=== PATIENT | male | born 1950 | race Hispanic/Latino ===

== ENCOUNTER 2022-08-24 16:38 | Emergency (ER) | payer OTHER, SELFPAY ==
[2022-08-24] VITALS (11 sets, daily range): BP systolic 153–191; BP diastolic 68–89; PULSE 64–70; RESP 16–18; TEMP 36.5; O2SAT 95–98
--- NOTE | 2022-08-24 18:29 | ED.MALEGU ---
HPI - Male Genitourinary General Chief complaint: Urogenital-Male Stated complaint: difficulty urinating Time Seen by Provider: 08/24/22 18:28 Source: patient and family Mode of arrival: ambulatory Limitations: no limitations History of Present Illness HPI Narrative: 72 years old white male came to the emergency room because inability to urinate. Last urination was 8 AM. Patient had similar symptoms yesterday, went to [facility], received some medication then got discharged. He denies any fever, chills, nausea, vomiting. Review of Systems Review of Systems: All systems reviewed & are unremarkable except as noted in HPI and below Exam Narrative: General appearance: Well-developed, well-nourished Skin: Normal color Head: Normocephalic, nontraumatic Eyes: Clear conjunctiva ENT: Oropharynx normal, ears normal, nose normal Neck: Supple, nontender Chest and respiratory: Airway patent, no respiratory distress, no accessory muscle use Heart: Regular rate/rhythm Abdomen: Diffuse tenderness suprapubic area, bulging suprapubic area Vascular: Normal peripheral pulses, normal capillary refill. 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 Status post Kathleen catheter placement. Date: 08/24/22 Time: 18:35 Vital Signs Vital signs: Vital Signs Temperature 36.5 C 08/24/22 16:59 Pulse Rate 65 08/24/22 16:59 Respiratory Rate 18 08/24/22 16:59 Blood Pressure 191/69 H 08/24/22 16:59 Pulse Oximetry 98 08/24/22 16:59 Oxygen Delivery Room Air 08/24/22 16:59 Temperature 36.5 C 08/24/22 16:59 Pulse Rate 68 08/24/22 21:00 Respiratory Rate 16 08/24/22 21:00 Blood Pressure 164/75 H 08/24/22 21:00 Pulse Oximetry 97 08/24/22 21:00 Oxygen Delivery Room Air 08/24/22 16:59 MDM - Male Genitourinary MDM Narrative Medical decision making narrative: Patient came with urinary retention, last urination was 10 hours prior to arrival to the emergency room. Patient was uncomfortable, suprapubic tenderness, Kathleen catheter placed, and 1600 cc urine out. With complete improvement of pain. Urinalysis showed no acute abnormalities. Benign prostatic hypertrophy high likely the underlying cause of patient urinary retention. Patient to follow-up with the urologist in few days. Differential Diagnosis Differential diagnosis: Likely urinary tract infection and acute retention of urine Lab Data Labs: Lab Results 08/24/22 Range/Units 20:59 Urine Color Yellow (Yellow) Urine Appearance Clear (Clear) Urine pH 6.0 (5.0-9.0) Ur Specific Anna 1.008 (1.001-1.035) Urine Protein Negative (Negative) mg/dL Urine Glucose (UA) Negative (Negative) mg/dL Urine Ketones Negative (Negative) mg/dL Ur Blood (Man) Negative (Negative) Urine Nitrate Negative (Negative) Urine Bilirubin Negative (Negative) Urine Urobilinogen 0.2 (<2.0) mg/dL Leukocyte Esterase Rfl Negative (Negative) KATHYA/UL Discharge Plan Discharge Clinical Impression: Acute retention of urine Patient Disposition: Home, Self-Care Condition: Stable Instructions: Antibiotic Form, Urinary Retention in Men (ED), Kathleen Catheter Placement and Care (ED), How to Change a Catheter Drainage Bag (DC) Additional Instructions: Return if symptoms are worsening , call urologist for appointment, take Tylenol as as needed for aches and pain, continue home medications. Remove Kathleen catheter in 3 to 5 days Follow-up/Referrals: Janes Peñaloza
[2022-08-24 21:14] LABS: Appearance Urine Clear (Clear); Bilirubin Urine Negative (Negative); Blood Urine Negative (Negative); Color Urine Yellow (Yellow); Glucose Urine UA Negative (Negative); Ketones Urine Negative (Negative); Leukocyte Esterase Ur Negative LEU/UL (Negative); Nitrate Urine Negative (Negative); Protein Urine Negative (Negative); Specific Grav Ur 1.008 (1.001-1.035); Urobilinogen Urine 0.2 mg/dL (<2.0)
[2022-08-24 21:25] LABS: Add Urine Microscopic? NO
== END 2022-08-24 22:20 | disposition home or self-care (01) ==
PROVIDERS: Physician Assistant; Emergency Provider Emergency Medicine; PCP Internal Medicine Gastroenterology
DX: R33.9 Retention of urine, unspecified (principal)
CPT/HCPCS: 51702; 81003; 99283

== ENCOUNTER 2022-09-30 11:38 | Emergency (ER) | payer OTHER, SELFPAY ==
[2022-09-30 11:44] VITALS: BP 180/67; PULSE 73; RESP 18; TEMP 36.4; O2SAT 99
--- NOTE | 2022-09-30 14:19 | ED.RECABL ---
HPI - Recheck/Abnormal Lab/Rx General Chief Complaint: Recheck/Abnormal Lab/Rx Stated Complaint: asking for catheter change Time Seen by Provider: 09/30/22 14:13 History of Present Illness HPI narrative: Patient is a 72-year-old male presenting for catheter change. Patient had a Alejandro catheter placed here last month for urinary retention. States that he has made several appointments with urology but they keep canceling on him. States that his next appointment is scheduled for next week. States that he is concerned that the catheter has not been changed for a long time. He denies any complaints or other concerns. Review of Systems Review of Systems: All systems reviewed & are unremarkable except as noted in HPI and below Exam Narrative: GENERAL: Well-appearing, well-nourished, and in no acute distress. Pleasant and cooperative HEAD: Normocephalic, atraumatic. EYES: PERRLA and EOMI. ENT: Nares clear, no rhinorrhea or epistaxis. Mucous membranes moist. NECK: Supple. CHEST: No respiratory distress. HEART: Regular rate and rhythm. ABDOMEN: Soft, nontender, nondistended : alejandro catheter in place with leg bag EXTREMITIES: Normal range of motion. No edema. SKIN: Warm, dry, no rash. NEURO: No focal deficits. Alert and oriented x3. PSYCH: Normal mood and affect. Course Vital Signs Vital signs: Vital Signs Temperature 97.6 F 09/30/22 11:44 Pulse Rate 73 09/30/22 11:44 Respiratory Rate 18 09/30/22 11:44 Blood Pressure 180/67 H 09/30/22 11:44 Pulse Oximetry 99 09/30/22 11:44 Temperature 97.6 F 09/30/22 11:44 Pulse Rate 54 L 09/30/22 15:14 Respiratory Rate 18 09/30/22 15:14 Blood Pressure 180/68 H 09/30/22 15:14 Pulse Oximetry 100 09/30/22 15:14 MDM - Recheck/Abnormal Lab/Rx MDM Narrative Medical decision making narrative: Patient is a 72-year-old male presenting for Alejandro catheter exchange. Patient is well-appearing and in no acute distress. He denies any complaints or other concerns. States that he just needs the catheter changed. States that he has an appointment with urology next week. Catheter exchanged at bedside without complication. Advised that he follow-up closely with his PCP as well. Appropriate return precautions given. Patient voiced understanding and is agreeable with plan. Discharged in stable condition. Differential Diagnosis Differential diagnosis: Likely other (encounter for alejandro catheter exchange) Medical Records Attestation: I reviewed the patient's medical records. Critical Care Time Critical Care Time Critical Care Time: No Discharge Plan Discharge Clinical Impression: Encounter for Alejandro catheter replacement Patient Disposition: Home, Self-Care Condition: Stable Instructions: Antibiotic Form, Alejandro Catheter Placement and Care (ED) Additional Instructions: Your Alejandro catheter has been replaced. Please make sure to go to your urology appointment next week. We recommend following up with PCP within 1-3 days. If your symptoms worsen, you develop chest pain, shortness of breath, numbness or weakness, vomiting, fevers >100.4F, or other concerning symptoms arise, please return to the ER. Follow-up/Referrals: Stuart,Baron Ayala MD [Primary Care Provider] -
[2022-09-30 15:14] VITALS: BP 180/68; PULSE 54; RESP 18; O2SAT 100
== END 2022-09-30 15:15 | disposition home or self-care (01) ==
LOC: ANHED 14:48
PROVIDERS: Emergency Provider Emergency Medicine; PCP Internal Medicine Gastroenterology
DX: R33.9 Retention of urine, unspecified (principal); Z46.6 Encounter for fitting and adjustment of urinary device
CPT/HCPCS: 51702; 99283

== ENCOUNTER 2022-10-26 12:36 | Emergency (ER) | payer OTHER, SELFPAY ==
--- NOTE | ~2022-10-26 | US_ITS ---
EXAMINATION: US scrotum doppler DATE: 10/26/2022 13:58 INDICATION: Right testicular pain and swelling TECHNIQUE: Testicular sonogram utilizing grayscale and Doppler COMPARISON: None. FINDINGS: The right testis measures 3.9 x 3 x 3.6 cm. The left testis measures 4.3 x 2.5 x 2.1 cm. Th ere is increased vascularity of the right epididymis and testis when compared to the left. The right epididymis is normal in size. The left epididymis is normal with normal vascular flow. There is a sma ll, complex right hydrocele. IMPRESSION: 1. Findings consistent with right epididymoorchitis with complex right hydrocele. Urologic evaluation is recommended. Reviewed, dictated and finalized at location A. IMPRESSION: 1. Findings consistent with right epididymoorchitis with complex right hydrocel e. Urologic evaluation is recommended.
[2022-10-26 12:37] VITALS: BP 147/66; PULSE 70; RESP 18; TEMP 36.6; O2SAT 97
--- NOTE | 2022-10-26 14:48 | ED.MALEGU ---
HPI - Male Genitourinary General Chief complaint: Urogenital-Male Stated complaint: right testicle problem Time Seen by Provider: 10/26/22 13:27 History of Present Illness HPI Narrative: This is a 72-year-old male, with past history of urinary retention with a follow-up an appointment in 3 days. Who presents to the emergency department with 2 days worth of right testicle swelling and pain. The patient denies recent trauma, fevers or chills. He describes the pain as sharp, rated 7/10, aggravated by direct pressure but otherwise minimal. He notes irritation at the penis and the location of his Kathleen catheter but denies other bleeding or purulent drainage Related Data Allergies Allergy/AdvReac Type Severity Reaction Status Date / Time No Known Allergies Allergy Verified 10/26/22 12:40 Review of Systems Review of Systems: CONSTITUTIONAL: Denies fever, chills, or sweats. CARDIOVASCULAR: Denies chest pain, palpitations, or edema. RESPIRATORY: Denies cough or dyspnea. GASTROINTESTINAL: Denies abdominal pain, nausea, vomiting, or diarrhea. GENITOURINARY: Right scrotal pain, dysuria denies dysuria or hematuria. SKIN: Denies rash or itching. MUSCULOSKELETAL: Denies back pain, joint pain, or myalgia. NEUROLOGIC: Denies headache, numbness, dizziness, or weakness. PSYCHIATRIC: Denies anxiety or depression. [facility] Past Medical History Medical History (Updated 10/26/22 @ 14:55 by Petr Marin MD) Diabetes mellitus Urinary retention Surgical History Surgical History (Updated 10/26/22 @ 14:50 by Petr Marin MD) History of lumbosacral spine surgery Social History Social History (Updated 10/26/22 @ 14:50 by Petr Marin MD) Smoking status: Never smoker Alcohol intake: current Drinks per week: 2 Substance use: never Exam Narrative: GENERAL: Well-developed, well-nourished, and in no acute distress. HEAD: Normocephalic, atraumatic. EYES: PERRLA and EOMI. CHEST: Clear to auscultation. No respiratory distress. No wheezes rales or rhonchi HEART: Regular rate and rhythm. No murmur heard. Normal peripheral pulses. ABDOMEN: Well-healed midline surgical scar consistent with exploratory laparotomy soft, nontender, nondistended, normal active bowel sounds. : Right scrotal swelling, tender to palpation, there is no noted erythema or induration. The bilateral testicles are normal to palpation. Cremasteric reflex intact EXTREMITIES: Normal range of motion. No edema. SKIN: Warm, dry, no rash. NEURO: Alert and oriented x3. Moving all 4 limbs purposefully. PSYCH: Normal mood and affect. Course Course Emergency Course: 14:51 - Scrotal ultrasound consistent with epididymoorchitis. There are no other acute findings. Will discharge with antibiotics and recommendation for follow-up in 3 days as scheduled. Discussed return and emergency precautions including signs/symptoms of testicular torsion. The patient voiced understanding and is comfortable with the plan. All questions answered to his satisfaction. Vital Signs Vital signs: Vital Signs Temperature 97.9 F 10/26/22 12:37 Pulse Rate 70 10/26/22 12:37 Respiratory Rate 18 10/26/22 12:37 Blood Pressure 147/66 H 10/26/22 12:37 Pulse Oximetry 97 10/26/22 12:37 Oxygen Delivery Room Air 10/26/22 12:37 Temperature 97.9 F 10/26/22 12:37 Pulse Rate 70 10/26/22 12:37 Respiratory Rate 18 10/26/22 12:37 Blood Pressure 147/66 H 10/26/22 12:37 Pulse Oximetry 97 10/26/22 12:37 Oxygen Delivery Room Air 10/26/22 12:37 MDM - Male Genitourinary MDM Narrative Medical decision making narrative: Plan: Pain control, imaging, reassess here Differential Diagnosis Differential diagnosis: Likely epididymitis and other (Orchitis, hernia, hydrocele, torsion, other) Discharge Plan Discharge Clinical Impression: Epididymitis, Acute orchitis, Pain in scrotum Patient Disposition: Home, Self-Care Condition: Stabl
[2022-10-26 15:09] VITALS: BP 136/80; PULSE 78; RESP 16; TEMP 36.6; O2SAT 98
== END 2022-10-26 15:11 | disposition home or self-care (01) ==
PROVIDERS: Emergency Provider Preventive Medicine Aerospace Medicine; PCP Internal Medicine Gastroenterology
DX: N45.3 Epididymo-orchitis (principal); E11.9 Type 2 diabetes mellitus without complications
CPT/HCPCS: 76870; 93976; 99284

== ENCOUNTER 2022-11-02 09:02 | Emergency (ER) | payer OTHER, SELFPAY ==
[2022-11-02 09:03] VITALS: BP 225/112; PULSE 78; RESP 16; TEMP 36.4; O2SAT 100
--- NOTE | 2022-11-02 09:45 | ED.MALEGU ---
HPI - Male Genitourinary General Chief complaint: Urogenital-Male Stated complaint: cant urinate Time Seen by Provider: 11/02/22 09:35 Source: patient Mode of arrival: ambulatory Limitations: no limitations History of Present Illness HPI Narrative: 72 years old white male came to the emergency room complaining of unable to urinate since yesterday afternoon. Lower abdominal pain. No fever or chills or nausea or vomiting. History of Kathleen catheter placement 2 months ago, removed 1 week ago. His urologist at [facility] who have seen last week to remove the catheter. Patient currently on Levaquin 500 mg once a day. Related Data Allergies Allergy/AdvReac Type Severity Reaction Status Date / Time No Known Allergies Allergy Verified 10/26/22 12:40 Review of Systems Review of Systems: All systems reviewed & are unremarkable except as noted in HPI and below PMFSH Past Medical History Medical History Diabetes mellitus Urinary retention Surgical History Surgical History History of lumbosacral spine surgery Social History Social History Smoking status: Never smoker Alcohol intake: current Drinks per week: 2 Substance use: never Exam Narrative: General appearance: Well-developed, well-nourished Skin: Normal color Head: Normocephalic, nontraumatic Eyes: Clear conjunctiva ENT: Oropharynx normal, ears normal, nose normal Neck: Supple, nontender Chest and respiratory: Airway patent, no respiratory distress, no accessory muscle use Heart: Regular rate/rhythm Abdomen: Soft, diffuse tenderness supra pubic area, no organomegaly, quiet bowel sounds Vascular: Normal peripheral pulses, normal capillary refill. Musculoskeletal: Normal range of motion, nontender back Neurologic: Alert and oriented ?3, COLORS CUSTODIAN is normal as tested, no gross motor deficit Course Reevaluation(s) Reevaluation #1: Patient feeling much better after 1400 cc urine output after Kathleen catheter placement. Date: 11/02/22 Time: 10:54 Vital Signs Vital signs: Vital Signs Temperature 36.4 C 11/02/22 09:03 Pulse Rate 78 11/02/22 09:03 Respiratory Rate 16 11/02/22 09:03 Blood Pressure 225/112 H 11/02/22 09:03 Pulse Oximetry 100 11/02/22 09:03 Temperature 36.4 C 11/02/22 09:03 Pulse Rate 78 11/02/22 09:03 Respiratory Rate 16 11/02/22 09:03 Blood Pressure 225/112 H 11/02/22 09:03 Pulse Oximetry 100 11/02/22 09:03 MDM - Male Genitourinary MDM Narrative Medical decision making narrative: Patient came to the ED with urinary retention, last urination was yesterday afternoon, and history of similar symptoms was having Kathleen catheter for 2 months, removed 1 week ago at [facility]/urology. Patient currently on Levaquin 500 once a day. Kathleen catheter placed, 1400 cc urine output, remarkable improvement of patient's symptoms. Urine analysis showed no abnormalities. Patient to be discharged home with Kathleen catheter in, to follow-up with his urologist in 3 to 4 days Differential Diagnosis Differential diagnosis: Likely other (Urinary retention, urinary tract infection) Critical Care Time Critical Care Time Critical Care Time: Yes Total Critical Care Time: 30 Discharge Plan Discharge Clinical Impression: Acute retention of urine Patient Disposition: Home, Self-Care Condition: Improved Instructions: Urinary Retention in Men (ED), Kathleen Catheter Placement and Care (ED), How to Change a Catheter Drainage Bag (DC) Additional Instructions: Return if symptoms
[2022-11-02 10:18] LABS: Appearance Urine Clear (Clear); Bilirubin Urine Negative (Negative); Blood Urine Negative (Negative); Color Urine Yellow (Yellow); Glucose Urine UA Negative (Negative); Ketones Urine Negative (Negative); Leukocyte Esterase Ur Negative LEU/UL (Negative); Nitrate Urine Negative (Negative); Protein Urine Negative (Negative); Urobilinogen Urine 0.2 mg/dL (<2.0); pH Urine 5.5 (5.0-9.0)
[2022-11-02 10:24] LABS: Add Urine Microscopic? NO
[2022-11-02 11:44] VITALS: BP 143/74; PULSE 71; RESP 15; O2SAT 97
== END 2022-11-02 11:50 | disposition home or self-care (01) ==
PROVIDERS: Emergency Provider Emergency Medicine; PCP Internal Medicine Gastroenterology
DX: R33.9 Retention of urine, unspecified (principal); E11.9 Type 2 diabetes mellitus without complications
CPT/HCPCS: 51702; 81003; 99283

== ENCOUNTER 2022-11-15 10:06 | Emergency (ER) | payer OTHER, SELFPAY ==
[2022-11-15 10:16] VITALS: BP 156/65; PULSE 56; RESP 18; TEMP 36.4; O2SAT 98
--- NOTE | 2022-11-15 11:23 | ED.MALEGU ---
HPI - Male Genitourinary General Chief complaint: Urogenital-Male Stated complaint: Unable to pee Time Seen by Provider: 11/15/22 11:23 Source: patient and family (ex-spouse at bedside) Mode of arrival: ambulatory Limitations: no limitations History of Present Illness HPI Narrative: Patient is a pleasant 72-year-old male with a past medical history of urinary retention, diabetes who presents emergency department today ambulatory with a steady gait for evaluation of difficulty urinating. Patient states he has not been able to pee since yesterday. States he has a lot of lower suprapubic pressure. He denies any fever, chills, blood in his urine, nausea, vomiting, chest pain, shortness a breath, dizziness, or any other symptoms. He states that last time he had this happen needed follow up the urologist and they had removed the Alejandro and told him that this happened again to go to the ED. Related Data Allergies Allergy/AdvReac Type Severity Reaction Status Date / Time No Known Allergies Allergy Verified 11/15/22 10:23 Review of Systems Review of Systems: CONSTITUTIONAL: Denies fever, chills, or sweats. EYES: Denies visual changes, redness, or discharge. ENT: Denies rhinorrhea, congestion, sore throat, or otalgia. CARDIOVASCULAR: Denies chest pain, palpitations, or edema. RESPIRATORY: Denies cough or dyspnea. GASTROINTESTINAL: Denies abdominal pain, nausea, vomiting, or diarrhea. GENITOURINARY: urinary retention, suprapubic pressure/discomfort/distention SKIN: Denies rash or itching. MUSCULOSKELETAL: Denies back pain, joint pain, or myalgia. NEUROLOGIC: Denies headache, numbness, or weakness. PSYCHIATRIC: Denies anxiety or depression. All systems reviewed & are unremarkable except as noted in HPI and below PMFSH Past Medical History Medical History Diabetes mellitus Urinary retention Surgical History Surgical History History of lumbosacral spine surgery Social History Social History Smoking status: Never smoker Alcohol intake: current Drinks per week: 2 Substance use: never Exam Narrative: GENERAL: Well-appearing, well-nourished, and in no acute distress. HEAD: Normocephalic, atraumatic. EYES: PERRLA and EOMI. ENT: Nares clear, no rhinorrhea or epistaxis. Mucous membranes moist. NECK: Supple. CHEST: Clear to auscultation. No respiratory distress. HEART: Regular rate and rhythm. No murmur heard. Normal peripheral pulses. ABDOMEN: Soft, nontender, nondistended, normal active bowel sounds. : mild tenderness over suprapubic region appears slightly distended. EXTREMITIES: Normal range of motion. No edema. SKIN: Warm, dry, no rash. NEURO: No focal deficits. Alert and oriented x3. CN II-XII grossly intact PSYCH: Normal mood and affect. Course Reevaluation(s) Reevaluation #1: patient had urinary catheter placed, at least 1000mL have been drained, patient did have much relief of pressure at this time. Date: 11/15/22 Time: 12:25 Reevaluation #2: patient has much relief, total of about 1400 drained from catheter. discussed going home with alejandro in place and he will f/u with urology. Date: 11/15/22 Time: 13:20 Vital Signs Vital signs: Vital Signs Temperature 97.6 F 11/15/22 10:16 Pulse Rate 56 L 11/15/22 10:16 Respiratory Rate 18 11/15/22 10:16 Blood Pressure 156/65 H 11/15/22 10:16 Pulse Oximetry 98 11/15/22 10:16 Temperature 97.6 F 11/15/22 10:16 Pulse Rate 56 L 11/15/22 10:16 Respiratory Rate 18 11/15/22 10:16 Blood Pressure 156/65 H 11/15/22 10:16 Pulse Oximetry 98 11/15/22 10:16 MDM - Male Genitourinary MDM Narrative Medical decision making narrative: patient presents for urinary retention, he has been seen here recently in the past few months for the same symptoms. plan to bl
[2022-11-15 12:03] LABS: Basophils Percent Auto 0.2 % (0.2-1.2); Eosinophils Absolute Auto 0.2 K/mm3 (0-0.3); Eosinophils Percent Auto 3.5 % (0-4.4); Hemoglobin 13.7 g/dL (14.0-18.0); Immature Granulocyte Absolute 0.03 K/mm3 (0.00-0.031); Immature Granulocyte Percent A 0.5 % (0-0.5); Lymphocytes Absolute Auto 1.31 K/mm3 (0.9-3.2); Lymphocytes Percent Auto 19.8 % (18.3-44.2); Mean Corpuscular HGB Conc 33.4 g/dl (32-36); Mean Corpuscular Volume 89.9 fl (80-100); Mean Platelet Volume 10.2 fl (7.4-10.4); Monocytes Absolute Auto 0.4 K/mm3 (0.1-0.6); Monocytes Percent Auto 5.3 % (2.6-8.5); Neutrophils Absolute Auto 4.7 K/mm3 (1.3-6.7); Neutrophils Percent Auto 70.7 % (45.5-73.1); Platelet Count Result 208 k/mm3 (150-375); Red Blood Count 4.56 M/mm3 (4.6-6.20); Red Cell Distribution Width 13.6 % (11.5-14.5); White Blood Count 6.6 K/mm3 (4.5-10.0)
[2022-11-15 12:13] LABS: Alanine Aminotransferase 20 U/L (6-50); Albumin Level 4.7 g/dL (3.5-5.1); Alkaline Phosphatase 75 U/L (38-126); Anion Gap 10 mmol/L (8-16); Aspartate Amino Transferase 28 U/L (17-59); Bilirubin,Total 0.9 mg/dL (0.2-1.3); Blood Urea Nitrogen 17 mg/dL (9-20); Calcium 9.2 mg/dL (8.4-10.2); Carbon Dioxide 26 mmol/L (22-30); Chloride 102 mmol/L (98-107); Estimated CRCL calculation 91 ml/min; Estimated Glomerular Filt Rate > 60; Glucose 150 mg/dL (65-110); Potassium 4.6 mmol/L (3.4-5.0); Sodium 138 mmol/L (137-145)
--- NOTE | 2022-11-15 12:29 | PC.NURSE ---
Bladderscan per plasma processing technician, EDP notified of >1000mL on bladder scan. Kathleen placed and clamped at 1000mL
[2022-11-15 12:41] LABS: Appearance Urine Clear (Clear); Bilirubin Urine Negative (Negative); Blood Urine Negative (Negative); Color Urine Yellow (Yellow); Glucose Urine UA Negative (Negative); Ketones Urine Negative (Negative); Leukocyte Esterase Ur Negative LEU/UL (Negative); Nitrate Urine Negative (Negative); Protein Urine Negative (Negative); Urobilinogen Urine 0.2 mg/dL (<2.0)
[2022-11-15 12:49] LABS: Add Urine Microscopic? NO
== END 2022-11-15 14:15 | disposition home or self-care (01) ==
PROVIDERS: Emergency Provider Nurse Practitioner; PCP Internal Medicine Gastroenterology
DX: R33.9 Retention of urine, unspecified (principal); E11.9 Type 2 diabetes mellitus without complications
CPT/HCPCS: 36415; 51702; 80053; 81003; 85025; 99283

== ENCOUNTER 2022-12-09 11:51 | Emergency (ER) | payer OTHER, SELFPAY ==
[2022-12-09 11:53] VITALS: BP 181/66; PULSE 59; RESP 17; TEMP 36.5; O2SAT 98
--- NOTE | 2022-12-09 14:14 | ED.MALEGU ---
HPI - Male Genitourinary General Chief complaint: Urogenital-Male Stated complaint: leaking catheter Time Seen by Provider: 12/09/22 13:16 Source: patient and RN notes reviewed Mode of arrival: ambulatory Limitations: no limitations History of Present Illness HPI Narrative: This is a 72 year old male with history of chronic indwelling Kathleen catheter who presents for evaluation of leaking Kathleen catheter. Patient states over the past couple of days he has noticed leaking from his catheter bag. He denies leaking from his penis. He denies lower abdominal pain or pressure. He denies fever, chills, nausea or vomiting. This catheter was placed 3 weeks ago , and he is scheduled to see urologist December 24. Related Data Allergies Allergy/AdvReac Type Severity Reaction Status Date / Time No Known Allergies Allergy Verified 12/09/22 13:16 Review of Systems Review of Systems: All systems reviewed & are unremarkable except as noted in HPI and below PMFSH Past Medical History Medical History Diabetes mellitus Urinary retention Surgical History Surgical History History of lumbosacral spine surgery Social History Social History Smoking status: Never smoker Alcohol intake: current Drinks per week: 2 Substance use: never Exam Const: General: no acute distress and alert Nutritional Appearance: well nourished HENMT: Head: normal to inspection Chest: Chest palpation & inspection: normal inspection of the chest Resp: Effort & Inspection: normal respiratory effort Auscultation: clear to auscultation bilaterally Cardio: Rate: regular rate Rhythm: regular rhythm Heart sounds: no murmurs GI: GI Palp: Yes Soft to palpation, No Tenderness to palpation present (GI), No Guarding due to palpation present (GI) and No Rigid due to palpation Auscultation: normal bowel sounds : Penis: Yes normal penis and Yes circumcised Other: no penile bleeding Urinary Catheter: Urinary Catheter: patent and draining and urine clear Skin: General skin exam: normal color Rashes: no rashes Wounds: no wounds Neuro: General: patient oriented x3 and moves all extremities Cranial nerves: Yes CN's II-XII intact bilaterally Psych: Mental Status: mental status grossly normal Affect: normal affect Attitude: cooperative Course Reevaluation(s) Reevaluation #1: nursing staff replaced catheter bag and attachment. no leakage seen. Bedside US empty bladder. he was also given large catheter bag for night time. Date: 12/09/22 Time: 14:47 Vital Signs Vital signs: Vital Signs Temperature 97.7 F 12/09/22 11:53 Pulse Rate 59 L 12/09/22 11:53 Respiratory Rate 17 12/09/22 11:53 Blood Pressure 181/66 H 12/09/22 11:53 Pulse Oximetry 98 12/09/22 11:53 Oxygen Delivery Room Air 12/09/22 11:53 Temperature 97.7 F 12/09/22 11:53 Pulse Rate 59 L 12/09/22 11:53 Respiratory Rate 17 12/09/22 11:53 Blood Pressure 181/66 H 12/09/22 11:53 Pulse Oximetry 98 12/09/22 11:53 Oxygen Delivery Room Air 12/09/22 11:53 MDM - Male Genitourinary Medical Records Attestation: I reviewed the patient's medical records. Discharge Plan Discharge Clinical Impression: Kathleen catheter problem Qualifiers: Encounter type: initial encounter Qualified Code(s): T83.9XXA - Unspecified complication of genitourinary prosthetic device, implant and graft, initial encounter Patient Disposition: Home, Self-Care Condition: Stable Instructions: Antibiotic Form, Kathleen Catheter Placement and Care (ED) Additional Instructions: Please follow up with your urologist Prescriptions: No Action levofloxacin 500 mg tablet 500 mg PO DAILY Qty: 10 0RF Follow-up/Referrals: Kedar,Baron Ayala MD [Primary Care Provider] -
--- NOTE | 2022-12-09 14:28 | PC.NURSE ---
Pts leg bag and alejandro lock changed per Dr. Johnson verbal request. Pt was given a separate Ubag for night time purposes.
== END 2022-12-09 14:51 | disposition home or self-care (01) ==
PROVIDERS: Emergency Provider General Practice; PCP Internal Medicine Gastroenterology
DX: T83.9XXA Unspecified complication of genitourinary prosthetic device, implant and graft, initial encounter (principal); Y84.6 Urinary catheterization as the cause of abnormal reaction of the patient, or of later complication, without mention of misadventure at the time of the procedure; Y73.8 Miscellaneous gastroenterology and urology devices associated with adverse incidents, not elsewhere classified; E11.9 Type 2 diabetes mellitus without complications
CPT/HCPCS: 51702; 99283

== ENCOUNTER 2023-01-04 04:53 | Emergency (ER) | payer OTHER, SELFPAY ==
[2023-01-04 04:55] VITALS: BP 178/68; PULSE 64; RESP 15; TEMP 36.4; O2SAT 100
[2023-01-04 05:37] LABS: Appearance Urine Clear (Clear); Bilirubin Urine Negative (Negative); Blood Urine Negative (Negative); Color Urine Yellow (Yellow); Glucose Urine UA Negative (Negative); Ketones Urine Negative (Negative); Leukocyte Esterase Ur Negative LEU/UL (Negative); Nitrate Urine Negative (Negative); Protein Urine Negative (Negative); Specific Grav Ur 1.012 (1.001-1.035)
[2023-01-04 05:39] LABS: Add Urine Microscopic? NO
--- NOTE | 2023-01-04 05:47 | ED.GENADULT ---
HPI - General Adult General Chief complaint: Urogenital-Male Stated complaint: urinary retention Time Seen by Provider: 01/04/23 05:09 History of Present Illness HPI narrative: Patient 72-year-old gentleman who presents the emergency department with chief complaint of urinary retention. Patient reports that he has had issues with urinary retention is followed by urology at [facility] the patient recently had a Kathleen catheter removed approximately 10 days ago and the family reports this is the longest he has gone without a catheter in place in several months. Patient denies fever denies dysuria reports that he has been able to urinate for almost 24 hours. Related Data Allergies Allergy/AdvReac Type Severity Reaction Status Date / Time No Known Allergies Allergy Verified 01/04/23 05:26 Review of Systems Review of Systems: A 10 system review of systems was completed on the patient and is negative except for what is stated in the HPI. Nursing and ancillary documentation was reviewed. [facility] Past Medical History Medical History Diabetes mellitus Urinary retention Surgical History Surgical History History of lumbosacral spine surgery Social History Social History Smoking status: Never smoker Alcohol intake: current Drinks per week: 2 Substance use: never Exam Narrative: GENERAL: Well-appearing, well-nourished, and in no acute distress. HEAD: Normocephalic, atraumatic. EYES: PERRLA and EOMI. ENT: Nares clear, no rhinorrhea or epistaxis. Mucous membranes moist. NECK: Supple. CHEST: Clear to auscultation. No respiratory distress. HEART: Regular rate and rhythm. No murmur heard. Normal peripheral pulses. ABDOMEN: Soft, nontender, nondistended, normal active bowel sounds. EXTREMITIES: Normal range of motion. No edema. SKIN: Warm, dry, no rash. NEURO: No focal deficits. Alert and oriented x3. PSYCH: Normal mood and affect. Course Vital Signs Vital signs: Vital Signs Temperature 36.4 C 01/04/23 04:55 Pulse Rate 64 01/04/23 04:55 Respiratory Rate 15 01/04/23 04:55 Blood Pressure 178/68 H 01/04/23 04:55 Pulse Oximetry 100 01/04/23 04:55 Oxygen Delivery Room Air 01/04/23 04:55 Temperature 36.4 C 01/04/23 04:55 Pulse Rate 64 01/04/23 04:55 Respiratory Rate 15 01/04/23 04:55 Blood Pressure 178/68 H 01/04/23 04:55 Pulse Oximetry 100 01/04/23 04:55 Oxygen Delivery Room Air 01/04/23 04:55 Medical Decision Making [facility] Narrative Medical decision making narrative: Differential diagnosis includes urinary retention due to BPH, UTI A Kathleen catheter was placed upon the patient immediately arriving to the room after he was found to have greater than 700 mils of urine present on a bladder scan. The patient had relief in his symptoms after his bladder was evacuated. Urinalysis was obtained which showed no evidence of UTI Vital Signs Vital Signs: Vital Signs Temperature 36.4 C 01/04/23 04:55 Pulse Rate 64 01/04/23 04:55 Respiratory Rate 15 01/04/23 04:55 Blood Pressure 178/68 H 01/04/23 04:55 Pulse Oximetry 100 01/04/23 04:55 Oxygen Delivery Room Air 01/04/23 04:55 Temperature 36.4 C 01/04/23 04:55 Pulse Rate 64 01/04/23 04:55 Respiratory Rate 15 01/04/23 04:55 Blood Pressure 178/68 H 01/04/23 04:55 Pulse Oximetry 100 01/04/23 04:55 Oxygen Delivery Room Air 01/04/23 04:55 Lab Data Labs: Lab Results 01/04/23 Range/Units 05:28 Urine Color Yellow (Yellow) Urine Appearance Clear (Clear) Urine pH 6.0 (5.0-9.0) Ur Specific [place] 1.012 (1.001-1.035) Urine Protein Negative (Negative) mg/dL Urine Glucose (UA) Negative (Negative) mg/dL Urine Ketones Negative (Negative) mg/dL Ur Blood (Man) Negativ
[2023-01-04 06:38] VITALS: BP 154/79; PULSE 68; RESP 14; O2SAT 99
== END 2023-01-04 06:40 | disposition home or self-care (01) ==
PROVIDERS: Emergency Provider Emergency Medicine; PCP Internal Medicine Gastroenterology
DX: R33.9 Retention of urine, unspecified (principal); E11.9 Type 2 diabetes mellitus without complications
CPT/HCPCS: 51702; 81003; 99283

== ENCOUNTER 2023-01-26 12:56 | Emergency (ER) | payer OTHER, SELFPAY ==
[2023-01-26] VITALS (28 sets, daily range): BP systolic 147–170; BP diastolic 66–146; PULSE 73–90; RESP 16–26; TEMP 37.6; O2SAT 92–100
--- NOTE | ~2023-01-26 | XR_ITS ---
EXAMINATION: XR chest 2V Exam Date/Time: 01/26/2023 14:19 [facility] HISTORY: cough, eval for PNA Comparison: None. RESULT: Lines, tubes, and devices: Cholecystectomy clips. Lungs and pleura: Clear. Granulomatous calcifications. Cardiomediastinal silhouette: Stable. Other: No acute osseous or upper abdominal finding. IMPRESSION: No acute cardiopulmonary process. Reviewed, dictated and finalized at location [facility]
--- NOTE | 2023-01-26 13:37 | ED.FEVER ---
HPI - Fever General Chief Complaint: Fever Stated Complaint: weakness Time Seen by Provider: 01/26/23 13:09 History of Present Illness HPI Narrative: Patient is a 72-year-old male with a history of urinary retention presenting with fever and chills. States that for the last several days he has been intermittently chilly and then hot and sweaty. States that he sometimes has to self cath due to chronic urinary retention. He denies any pain anywhere. No dysuria or hematuria. No nausea or vomiting. No changes in bowel movements. His is concerned that he has a cold or infection. Related Data Allergies Allergy/AdvReac Type Severity Reaction Status Date / Time No Known Allergies Allergy Verified 01/26/23 13:06 Review of Systems Review of Systems: All systems reviewed & are unremarkable except as noted in HPI and below PMFSH Past Medical History Medical History Diabetes mellitus Urinary retention Surgical History Surgical History History of lumbosacral spine surgery Social History Social History Smoking status: Never smoker Alcohol intake: current Drinks per week: 2 Substance use: never Exam Narrative: GENERAL: Well-appearing, nontoxic, pleasant and cooperative HEAD: Normocephalic, atraumatic. EYES: PERRLA and EOMI. ENT: Mucous membranes moist. NECK: Supple. CHEST: Clear to auscultation. No respiratory distress. HEART: Regular rate and rhythm. ABDOMEN: Soft, nontender, nondistended EXTREMITIES: Normal range of motion. No edema. SKIN: Warm, dry, no rash. NEURO: No focal deficits. Alert and oriented x3. PSYCH: Normal mood and affect. Course Vital Signs Vital signs: Vital Signs Temperature 99.6 F 01/26/23 13:04 Pulse Rate 74 01/26/23 13:04 Respiratory Rate 20 01/26/23 13:04 Blood Pressure 167/69 H 01/26/23 13:04 Pulse Oximetry 99 01/26/23 13:04 Oxygen Delivery Room Air 01/26/23 13:04 Temperature 99.6 F 01/26/23 13:04 Pulse Rate 80 01/26/23 16:24 Respiratory Rate 20 01/26/23 16:24 Blood Pressure 158/66 H 01/26/23 16:24 Pulse Oximetry 96 01/26/23 16:24 Oxygen Delivery Room Air 01/26/23 13:04 MDM - Fever MDM Narrative Medical decision making narrative: 72-year-old male presenting with fevers and chills. Vital stable. Exam unremarkable. Blood work with hemoglobin of 9.8, this is down a few grams from several months ago. I spoke with the patient about any signs of bleeding. He denies any. No hematochezia, melena, hemoptysis, hematemesis, epistaxis. UA is concerning for UTI. Patient given a dose of IV Rocephin. Chest x-ray with no acute abnormalities. Remainder of work-up is unremarkable. Discussed the work-up with the patient, will send in for Keflex. Feel he is safe for outpatient management. Advise close PCP follow-up. Appropriate return precautions given. Discharged in stable condition. Differential Diagnosis Differential diagnosis: Likely gastroenteritis, community acquired pneumonia, pyelonephritis, viral infection, influenza and other (UTI) Medical Records Attestation: I reviewed the patient's medical records. Lab Data Attestation: I reviewed the patient's lab results. 01/26/23 13:56 01/26/23 13:56 Labs: Lab Results 01/26/23 01/26/23 01/26/23 Range/Units 13:56 13:57 13:59 WBC 5.4 (4.5-10.0) K/mm3 RBC 3.18 L (4.6-6.20) M/mm3 Hgb 9.8 L D (14.0-18.0) g/dL Hct 29.3 L (42.0-52.0) % MCV 92.1 (80-100) fl MCH 30.8 (26-34) pg MCHC 33.4 (32-36) g/dl RDW 13.7 (11.5-14.5) % Plt Count 160 (150-375) k/mm3 MPV 10.1 (7.4-10.4) fl Immature Gran % (Auto) 0.4 (0-0.5) % Neut % (Auto) 82.1 H (45.5-73.1) % Lymph % (Auto) 10.2 L (18.3-44.2) % [place] % (Auto) 6.7 (2.
[2023-01-26] MEDS: SODIUM CHLORIDE 0.9% IV 1,000 ML 999 ML IV CONT (14:01)
[2023-01-26 14:11] LABS: Basophils Percent Auto 0.2 % (0.2-1.2); Eosinophils Percent Auto 0.4 % (0-4.4); Hematocrit 29.3 % (42.0-52.0); Hemoglobin 9.8 g/dL (14.0-18.0); Immature Granulocyte Absolute 0.02 K/mm3 (0.00-0.031); Immature Granulocyte Percent A 0.4 % (0-0.5); Lymphocytes Absolute Auto 0.55 K/mm3 (0.9-3.2); Lymphocytes Percent Auto 10.2 % (18.3-44.2); Mean Corpuscular HGB Conc 33.4 g/dl (32-36); Mean Corpuscular Hemoglobin 30.8 pg (26-34); Mean Corpuscular Volume 92.1 fl (80-100); Mean Platelet Volume 10.1 fl (7.4-10.4); Monocytes Absolute Auto 0.4 K/mm3 (0.1-0.6); Monocytes Percent Auto 6.7 % (2.6-8.5); Neutrophils Absolute Auto 4.5 K/mm3 (1.3-6.7); Neutrophils Percent Auto 82.1 % (45.5-73.1); Platelet Count Result 160 k/mm3 (150-375); Red Blood Count 3.18 M/mm3 (4.6-6.20); Red Cell Distribution Width 13.7 % (11.5-14.5); White Blood Count 5.4 K/mm3 (4.5-10.0)
[2023-01-26 14:12] LABS: Appearance Urine Clear (Clear); Bacteria Urine None Seen /hpf; Bilirubin Urine Negative (Negative); Blood Urine Trace (Negative); Color Urine Yellow (Yellow); Glucose Urine UA Negative (Negative); Ketones Urine 1+ mg/dL (Negative); Leukocyte Esterase Ur 1+ LEU/UL (Negative); Nitrate Urine Negative (Negative); Non Pathogenic Casts 0-2; Protein Urine Trace mg/dL (Negative); Specific Grav Ur 1.019 (1.001-1.035); Squamous Epithelial Cell Urine Occasional /hpf (Few); WBC Urine 51-100 /hpf
[2023-01-26 14:25] LABS: Add Urine Microscopic? YES
[2023-01-26 14:26] LABS: Lactic Acid Reflex 0.8 mmol/L (0.7-2.0)
[2023-01-26 14:27] LABS: Alanine Aminotransferase 17 U/L (6-50); Albumin Level 3.7 g/dL (3.5-5.1); Alkaline Phosphatase 60 U/L (38-126); Anion Gap 10 mmol/L (8-16); Aspartate Amino Transferase 20 U/L (17-59); Bilirubin,Total 0.9 mg/dL (0.2-1.3); Blood Urea Nitrogen 14 mg/dL (9-20); Calcium 8.3 mg/dL (8.4-10.2); Carbon Dioxide 24 mmol/L (22-30); Chloride 101 mmol/L (98-107); Estimated CRCL calculation 79 ml/min; Estimated Glomerular Filt Rate > 60; Glucose 101 mg/dL (65-110); Lipase 68 U/L (23-300); Potassium 3.9 mmol/L (3.4-5.0); Sodium 135 mmol/L (137-145)
[2023-01-26] MEDS: cefTRIAXone 2 GM/NS 100 ML 2 GM/100 ML BAG IVPB (14:34)
[2023-01-26 14:46] LABS: Influenza A QL RT-PCR Negative (Negative); Influenza B QL RT-PCR Negative (Negative); SARS-CoV-2 RNA PCR Negative (Negative)
== END 2023-01-26 16:26 | disposition home or self-care (01) ==
PROVIDERS: Emergency Provider Emergency Medicine; PCP Internal Medicine Gastroenterology
DX: N39.0 Urinary tract infection, site not specified (principal); E11.9 Type 2 diabetes mellitus without complications; Z20.822 Contact with and (suspected) exposure to COVID-19
CPT/HCPCS: 36415; 71046; 80053; 81001; 83605; 83690; 85025; 87077; 87086; 87186; 87636; 96361; 96365; 99284; J0696; J7030